=== PATIENT | male | born 1955 | race Caucasian/White ===

== ENCOUNTER 2017-04-15 10:19 | Day surgery (SDC) | payer OTHER ==
[2017-04-15 11:55] VITALS: TEMP 98.1
[2017-04-15] MEDS ORDERED: LACTATED RINGERS 1,000 ML IV ONE (11:55)
[2017-04-15] MEDS ORDERED: PROPOFOL 10 MG/ML 20 ML VIAL IV ONE (12:41)
[2017-04-15] MEDS ORDERED: LIDOCAINE 1% INJ 10MG/ML (20 ML MDV) ONE (12:41)
--- NOTE | 2017-04-15 12:52 | P.GSHP ---
History of Present Illness H&P Date: 04/15/17 Chief Complaint: Screening colonoscopy This is a 61-year-old male referred from Dr. Garcia. Patient rents today for screening colonoscopy. His last colonoscopy was approximately 9 years ago. Past Medical History Past Medical History: No Reported History History of Any Multi-Drug Resistant Organisms: None Reported Additional Past Surgical History / Comment(s): RIGHT ANKLE SURGERY, RIGHT THUMB SURGERY Past Anesthesia/Blood Transfusion Reactions: No Reported Reaction Past Psychological History: No Psychological Hx Reported Smoking Status: Former smoker Past Alcohol Use History: None Reported Past Drug Use History: None Reported - Past Family History Daughter(s) History Unknown: Yes Family Medical History: Cancer Additional Family Medical History / Comment(s): DAUGHTER HAS HX OF LEUKEMIA Medications and Allergies Home Medications Medication Instructions Recorded Confirmed Type Multivitamin [Men's Multi-Vitamin] 1 tab PO DAILY 04/15/17 04/15/17 History Allergies Allergy/AdvReac Type Severity Reaction Status Date / Time Penicillins Allergy Swelling Verified 04/15/17 11:53 Surgical - Exam Vital Signs Temp Pulse Resp BP Pulse Ox 98.1 F 72 16 127/80 98 04/15/17 11:54 04/15/17 11:54 04/15/17 11:54 04/15/17 11:54 04/15/17 11:54 - General well developed, no distress - Eyes PERRL - ENT normal pinna - Neck no masses - Respiratory normal expansion - Cardiovascular Rhythm: regular - Abdomen Abdomen: soft, non tender Assessment and Plan Plan: We will perform screening colonoscopy.
--- NOTE | 2017-04-15 13:01 | P.OP ---
Date of Procedure: 04/15/17 Preoperative Diagnosis: Screening colonoscopy Postoperative Diagnosis: Mild sigmoid inflammation, pathology pending Procedure(s) Performed: Colonoscopy Implants: Anesthesia: MAC Surgeon: Silver Amaral Pathology: other (Sigmoid biopsy) Condition: stable Disposition: PACU Indications for Procedure: Operative Findings: Description of Procedure: The patient's placed on the endoscopy table in the lateral position. He received IV sedation. Digital rectal exam was performed which revealed no abnormalities. The prostate was symmetric without nodules. The flexible colonoscope was then placed patient anus passed throughout the entire colon. The ileocecal valve was visualized. Cecum, ascending, transverse and descending colon appeared normal. The scope was then brought back the sigmoid colon and a biopsies performed. There is evidence of some mildly inflamed mucosa. The rectum appeared normal. Scope was withdrawn for patient.
[2017-04-15 13:25] VITALS: BP 124/85; PULSE 76; RESP 18
== END 2017-04-15 13:36 | disposition home or self-care (01) ==
LOC: ORWHC2ENDO 10:19
PROVIDERS: ATTEND Surgery
DX: Z12.11 Encounter for screening for malignant neoplasm of colon (principal); Z86.010 Personal history of colon polyps; Z87.891 Personal history of nicotine dependence; Z88.0 Allergy status to penicillin
CPT/HCPCS: 88305; 45380; J2001; J2704

== ENCOUNTER → 2018-12-06 | Outpatient (CLI) | payer BC ==
--- NOTE | 2018-12-06 12:35 | MR ---
EXAMINATION TYPE: MR knee RT wo con DATE OF EXAM: 12/06/2018 COMPARISON: Outside right knee x-ray December 02, 2018. HISTORY: Right knee pain per order. Pain and swelling with repetitive trauma for years per patient. TECHNIQUE: Multiplanar, multisequence images of the knee is performed without IV contrast. FINDINGS: MEDIAL MENISCUS: Medial meniscus is abnormal, there is oblique signal anterior horn extending to supe rior and inferior articular surfaces. Posterior horn is truncated with central increased signal exten ding to superior articular surface. LATERAL MENISCUS: Anterior and posterior horns are intact without tear. CRUCIATE LIGAMENTS: The anterior and posterior cruciate ligaments are intact and unremarkable. COLLATERAL LIGAMENTS: The medial collateral ligament and lateral collateral ligament complex are inta ct. Mild fluid signal surrounds medial collateral ligament. EXTENSOR MECHANISM: Visualized quadriceps and patellar tendons are intact. EFFUSION: No significant suprapatellar joint effusion. POPLITEAL CYST: No popliteal/he cyst. There is focal fluid signal seen deeper in central to the p opliteal fossa near popliteal vessels best sagittal image 16 of uncertain etiology. TRICOMPARTMENT SPACES: Mild to moderate tricompartment joint space loss is present. There is mild tib ial condylar spurring and mild medial tibiofemoral compartment spurring. CARTILAGE: Thinning of articular cartilage with fissuring medial tibiofemoral compartment is present. No significant chondromalacia patella is identified. BONE MARROW SIGNAL: Suspect unfused apophysis lateral aspect of the patella with well-defined cleft. No suspicious edema is noted. OTHER: No additional significant abnormality is appreciated. IMPRESSION: 1. Full-thickness tears medial meniscus involving anterior and posterior horns. 2. Mild MCL sprain injury. 3. Mild to moderate tricompartment degenerative changes as detailed above.
== END | disposition home or self-care (01) ==
LOC: RADMRIMAIN 09:43
PROVIDERS: ATTEND Orthopaedic Surgery
DX: M17.11 Unilateral primary osteoarthritis, right knee (principal); S83.241A Other tear of medial meniscus, current injury, right knee, initial encounter; S83.91XA Sprain of unspecified site of right knee, initial encounter

== ENCOUNTER 2019-01-14 09:41 | Day surgery (SDC) | payer BC ==
[2019-01-08 15:23] VITALS: BMI 27.4
--- NOTE | 2019-01-13 13:35 | HP ---
HISTORY AND PHYSICAL Surgery is 01/14/2019. Jp Brown is a 63-year-old patient seen with progressive right knee pain. Treatment options were discussed. He elected to proceed with arthroscopy. Consent was obtained. PAST MEDICAL HISTORY: His past medical history is noncontributory. PAST SURGICAL HISTORY: Ankle surgery. DAILY MEDICATIONS: None. ALLERGIES: PENICILLIN. SOCIAL HISTORY: Denies current tobacco use. PHYSICAL EXAMINATION: Physical evaluation of the right knee: Range of motion is 0 to 120 degrees. There is a mild effusion present. Tenderness medial joint line. Positive medial Danette's. Ligaments are stable. Hip rotation without pain. Distal neurovascular exam is intact. Right knee radiographs revealed mild osteoarthritis, evidence for bipartite patella. MRI right knee revealed medial meniscal tear. IMPRESSION: Internal derangement right knee with medial meniscal tear. PLAN: Right knee arthroscopy with partial meniscectomy and debridement. MMODL / IJN: [id number] /
[~2019-01-14 09:41] MED LIST: CLINDAMYCIN 900 MG in DEXTROSE 5% IN WATER 50 ML IVPB ONE; DEXAMETHASONE SOD PHOSPHATE 10 MG/ML 1 ML VIAL IV ONE; LACTATED RINGERS 1,000 ML IV SCH; LIDOCAINE 1% 20 ML VIAL (10MG/ML) FOR IV START INTRADERMA PRN; ONDANSETRON 4 MG/2 ML VIAL IVP ONE; SCOPOLAMINE 1.5MG/72HR PATCH TRANSDERM ONE
[2019-01-14] MEDS ORDERED: LACTATED RINGERS 1,000 ML IV ONE ×2 (10:05→14:02)
[2019-01-14] MEDS ORDERED: KETOROLAC 30 MG/ML 1 ML VIAL ONE (12:10)
[2019-01-14] MEDS ORDERED: fentaNYL (PF) 50 MCG/ML 2 ML AMP ONE (12:10)
[2019-01-14] MEDS ORDERED: LIDOCAINE 1% INJ 10MG/ML (20 ML MDV) ONE (12:10)
[2019-01-14] MEDS ORDERED: DEXAMETHASONE SOD PHOS (MDV) 100 MG/10 ML VIAL ONE (12:10)
[2019-01-14] MEDS ORDERED: HYDROmorphone (PF) 1 MG/ML ONE (12:10)
[2019-01-14] MEDS ORDERED: MIDAZOLAM 2 MG/2 ML VIAL ONE (12:10)
[2019-01-14] MEDS ORDERED: BUPIVACAINE-EPI 0.5%-1:200,000 10 ML VIAL INTRAARTIC ONE (12:10)
[2019-01-14] MEDS ORDERED: PROPOFOL 10 MG/ML 20 ML VIAL IV ONE (12:10)
[2019-01-14] MEDS ORDERED: SUCCINYLCHOLINE CHLORIDE 100 MG/5 ML SYR IV ONE (12:10)
[2019-01-14 13:22] VITALS: TEMP 97.6
--- NOTE | 2019-01-14 13:23 | P.OP ---
Date of Procedure: 01/14/19 Preoperative Diagnosis: Internal derangement right knee Postoperative Diagnosis: 1. Tear medial meniscus right knee 2. Grade 4 chondromalacia medial femoral condyle right knee 3. 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 Reactive synovitis medial, lateral and suprapatellar compartments right knee Procedure(s) Performed: 1. Arthroscopic partial medial meniscectomy right knee 2. Arthroscopic chondroplasty medial femoral condyle right knee 3. Arthroscopic chondroplasty patellofemoral joint right knee 4. Arthroscopic microfracture medial femoral condyle right knee 5. Arthroscopic partial synovectomy medial, lateral and suprapatellar compartments right knee Anesthesia: DIANEA, local Surgeon: Jamel Vincent Estimated Blood Loss (ml): 8 Pathology: none sent Condition: stable Disposition: PACU Indications for Procedure: 63-year-old patient seen with progressive right knee pain. After treatment options were discussed, he elected to proceed with arthroscopy Operative Findings: See description of procedure Description of Procedure: Patient was taken to the operative suite. Patient underwent a general anesthetic by the department of anesthesia. Patient was given preoperative antibiotics. The right lower extremity was placed in a well-padded arthroscopic leg william. The right leg was prepped and draped in the normal sterile orthopedic fashion. A lateral parapatellar and suprapatellar incision was made. Trochars were inserted. Arthroscopy was initiated. Suprapatellar pouch revealed diffuse thick reactive synovitis. The patellofemoral joint appeared articulate congruently. There was grade 3/4 chondromalacia of the patellofemoral joint. The scope was guided into the medial gutter. No loose bodies or plica were identified. The scope was then guided into the medial compartment. A medial parapatellar incision was made. Trocar inserted followed by probe. There was a complex tear involving the posterior horn and midbody medial meniscus. There were grade 3 and 4 chondromalacia changes of the medial femoral condyle with some osteochondral flap tears present. There was thick reactive synovitis anteriorly. I performed a partial medial meniscectomy down to stable tissue. I performed a chondroplasty of the medial femoral condyle down to stable tissue. I performed a partial synovectomy decompressing the reactive synovitis. There was an area of exposed bone weightbearing surface medial femoral condyle. I performed a microfracture to that area penetrating the bone was resultant bleeding at the microfracture site. Scope and probe were then guided into the intercondylar notch. Cruciates were identified, probed and found to be stable. The scope and probe were then guided into lateral compartment. There was some superficial fraying of the lateral meniscus. There were grade 2 chondromalacia changes of lateral femoral condyle. There was thick reactive synovitis anteriorly. I debrided that superficial fraying of the lateral meniscus with a motorized shaver. I performed a partial synovectomy decompressing the thick reactive synovitis. There was good decompression of synovitis. The scope was in guided back into the suprapatellar compartment. I introduced a motorized shaver into the super patellar compartment. I debrided piecemeal fragments of meniscus I encountered. I performed a chondroplasty of the patellofemoral joint getting down to stable osteochondral tissue. I performed a partial synovectomy decompressing the reactive synovitis. There was good decompression of synovitis. I took one more look on the entire knee, no residual debris. Instruments were now removed from the joint. The joint was infiltrated with .5% Marcaine. Steri-Strips were applied to the portal sites. Sterile dressings were applied. The patient was placed into a LITO hose. No tourniquet was utilized. The patient was awakened, transferred to a bed and taken to recovery stable satisfactory condition.
[2019-01-14] MEDS: HYDROmorphone 0.5 MG/0.5 ML SYRINGE IVP PRN ×2 (13:25→13:30)
[2019-01-14 14:08] VITALS: RESP 16
[2019-01-14 15:37] VITALS: BP 133/85; PULSE 75
== END 2019-01-14 15:39 | disposition home or self-care (01) ==
LOC: OR 09:41
PROVIDERS: ATTEND Orthopaedic Surgery
DX: S83.241A Other tear of medial meniscus, current injury, right knee, initial encounter (principal); S83.281A Other tear of lateral meniscus, current injury, right knee, initial encounter; X58.XXXA Exposure to other specified factors, initial encounter; M22.41 Chondromalacia patellae, right knee; M65.861 Other synovitis and tenosynovitis, right lower leg; Z87.891 Personal history of nicotine dependence; I34.0 Nonrheumatic mitral (valve) insufficiency; Z88.0 Allergy status to penicillin
CPT/HCPCS: 29880; 84132; J2250; J1100 ×2; J2405; J2001; J3010; J1885; J1170 ×2; J0330; J2704

== ENCOUNTER → 2021-01-31 | Outpatient (CLI) | payer MEDICARE ==
--- NOTE | 2021-01-31 09:53 | MR ---
EXAMINATION TYPE: MR knee LT wo con DATE OF EXAM: 01/31/2021 COMPARISON: X-ray 01/18/2021 HISTORY: Left Knee pain, towards medial side of Knee TECHNIQUE: Multiplanar, multisequence imaging of the left knee is performed without IV contrast. FINDINGS: MEDIAL MENISCUS: Within the posterior horn there is grade 3 abnormal signal compatible with a menisca l tear. There is also localized grade III chondromalacia of the femoral cartilage. Small para menisca l cyst noted. LATERAL MENISCUS: Linear intrasubstance signal seen within the posterior horn and body of the lateral meniscus. . Localized grade II chondromalacia of the lateral femoral cartilage CRUCIATE LIGAMENTS: The anterior and posterior cruciate ligaments are intact and unremarkable. COLLATERAL LIGAMENTS: The medial collateral ligament and lateral collateral ligament complex are. Fin dings suggestive of a grade 1 MCL strain. EXTENSOR MECHANISM: Visualized quadriceps and patellar tendons are intact. EFFUSION: No significant suprapatellar joint effusion. POPLITEAL CYST: 1 cm popliteal fossa cyst TRICOMPARTMENT SPACES: There is narrowing of the medial compartment of the knee joint. No erosive josé nges. BONE MARROW SIGNAL: No focal abnormal marrow signal is appreciated. IMPRESSION: 1. Findings compatible with a complex posterior horn medial meniscal tear. Small adjacent paralabral cyst noted. Grade 1 MCL strain 2. Intrasubstance signal lateral meniscus most typical of myxoid degeneration. 3. Chondromalacia involving the articular medial and lateral femoral cartilage. 4. Findings suspicious for linear tear posterior horn and body lateral meniscus.
== END | disposition home or self-care (01) ==
LOC: RADMRIMAIN 08:30
PROVIDERS: ATTEND Orthopaedic Surgery
DX: M94.262 Chondromalacia, left knee (principal)

== ENCOUNTER 2021-03-16 12:01 | Day surgery (SDC) | payer MEDICARE ==
[2021-03-14 16:31] VITALS: BMI 25.9
--- NOTE | 2021-03-15 21:59 | HP ---
HISTORY AND PHYSICAL REASON FOR ADMISSION: Surgery 03/16/2021. HISTORY OF PRESENT ILLNESS: Jp Brown is a 65-year-old patient seen with progressive left knee pain. We discussed options for treatment. He elected to proceed with left knee arthroscopy. Consent was obtained. PAST MEDICAL HISTORY: Noncontributory. SURGICAL HISTORY: Ankle surgery. MEDICATIONS: Daily medications are none. ALLERGIES: PENICILLIN. SOCIAL HISTORY: Denies tobacco use. PHYSICAL EXAMINATION: Evaluation of the left knee: Range of motion zero to 130. There is a mild effusion. Tenderness medial joint line. Positive medial Danette's. Ligaments stable. Hip rotation without pain. Distal neurovascular exam is intact. RADIOGRAPHS: Left knee radiographs revealed moderate osteoarthritis, left knee MRI revealed a complex medial meniscal tear as well as a probable lateral meniscal tear. IMPRESSION: 1. Internal derangement of left knee with medial meniscal tear. 2. Left knee osteoarthritis. PLAN: Left knee arthroscopy with partial meniscectomy and debridement. MMODL / IJN: [id number] /
[~2021-03-16 12:01] MED LIST changes: -CLINDAMYCIN 900 MG in DEXTROSE 5% IN WATER 50 ML IVPB ONE; -DEXAMETHASONE SOD PHOSPHATE 10 MG/ML 1 ML VIAL IV ONE; -LIDOCAINE 1% 20 ML VIAL (10MG/ML) FOR IV START INTRADERMA PRN; -ONDANSETRON 4 MG/2 ML VIAL IVP ONE; -SCOPOLAMINE 1.5MG/72HR PATCH TRANSDERM ONE
[2021-03-16] MEDS ORDERED: ONDANSETRON 4 MG/2 ML VIAL ONE (12:27)
[2021-03-16] MEDS ORDERED: LACTATED RINGERS 1,000 ML IV ONE (12:37)
[2021-03-16] MEDS ORDERED: LIDOCAINE 1% (10MG/ML) FOR IV START INTRADERMA ONE (12:38)
[2021-03-16] MEDS ORDERED: DEXAMETHASONE SOD PHOSPHATE 4 MG/ML 1 ML VIAL IV ONE (12:39)
[2021-03-16] MEDS ORDERED: ONDANSETRON 4 MG/2 ML VIAL IVP ONE (12:40)
[2021-03-16] MEDS ORDERED: KETOROLAC 15 MG/ML 1 ML VIAL ONE (12:44)
[2021-03-16] MEDS ORDERED: fentaNYL (PF) 50 MCG/ML 2 ML AMP ONE (12:44)
[2021-03-16] MEDS ORDERED: MIDAZOLAM 2 MG/2 ML VIAL ONE (12:44)
[2021-03-16] MEDS ORDERED: LIDOCAINE 1% INJ 10MG/ML (20 ML MDV) ONE (12:44)
[2021-03-16] MEDS ORDERED: PROPOFOL 10 MG/ML 20 ML VIAL IV ONE (12:44)
[2021-03-16] MEDS ORDERED: BUPIVACAINE (PF) 0.25% 30 ML VIAL SQ ONE ×2 (12:55→13:22)
[2021-03-16] MEDS: CLINDAMYCIN 900 MG in DEXTROSE 5% IN WATER 50 ML IVPB PRN ×4 (12:55→13:01)
[2021-03-16 13:34] VITALS: TEMP 97
--- NOTE | 2021-03-16 13:39 | P.OP ---
Date of Procedure: 03/16/21 Preoperative Diagnosis: Internal derangement left knee Postoperative Diagnosis: 1. Tear medial meniscus left knee 2. Grade 2 chondromalacia medial femoral condyle left knee 3. Reactive synovitis medial, lateral and suprapatellar compartments left knee Procedure(s) Performed: 1. Arthroscopic partial medial meniscectomy left knee 2. Arthroscopic chondroplasty medial femoral condyle left knee 3. Arthroscopic partial synovectomy medial, lateral and suprapatellar compartments left knee Anesthesia: DIANEA, local Surgeon: Jamel Vincent Estimated Blood Loss (ml): 7 Pathology: none sent Condition: stable Disposition: PACU Indications for Procedure: 65-year-old patient seen with progressive left knee pain. After treatment options were discussed, he elected to proceed with arthroscopy. Operative Findings: See description of procedure Description of Procedure: Patient was taken to the operative suite. Patient underwent a general anesthetic by the department of anesthesia. Patient was given preoperative antibiotics. The left lower extremity was placed in a well-padded arthroscopic leg william. The left leg was prepped and draped in the normal sterile orthopedic fashion. A lateral parapatellar and suprapatellar incision was made. Trochars were inserted. Arthroscopy was initiated. Suprapatellar pouch revealed diffuse thick reactive synovitis. The patellofemoral joint appeared to articulate congruently. There was grade 1 chondromalacia of the patellofemoral joint with no osteochondral tears present. The scope was guided into the medial gutter. No loose bodies or plica were identified. The scope was then guided into the medial compartment. A medial parapatellar incision was made. Trocar inserted followed by probe. It was a complex tear medial meniscus involving the posterior horn and midbody. There were grade 2 chondral moist changes of the medial femoral condyle. There was thick reactive synovitis anteriorly. I performed a partial medial meniscectomy getting down to stable meniscal tissue. I performed a chondroplasty of the medial femoral condyle getting down to stable osteochondral tissue. I performed a partial synovectomy decompressing the thick reactive synovitis. The shaver was removed. The residual meniscus was stable. There was good decompression of the synovitis. The residual osteochondral surface was stable. Scope and probe were then guided into the intercondylar notch. Cruciates were identified, probed and found to be stable. The scope and probe were then guided into lateral compartment. Lateral meniscus was probed and found to be stable. There was no significant chondromalacia present. There was some thick reactive synovitis anteriorly. I introduced a motorized shaver and performed a partial synovectomy decompressing the reactive synovitis. The shaver was removed. There was good decompression of the synovitis. The scope was in guided back into the suprapatellar compartment. I introduced a motorized shaver into the suprapatellar compartment. I debrided some piecemeal fragments of meniscus I encountered. I performed a partial synovectomy decompressing the reactive synovitis. The shaver was removed. There was good decompression of the synovitis. Instruments were now removed from the joint. The joint was infiltrated with .25% Marcaine. Steri-Strips were applied to the portal sites. Sterile dressings were applied. The patient was placed into a LITO hose. No tourniquet was utilized. The patient was awakened, transferred to a bed and taken to recovery stable satisfactory condition.
[2021-03-16] MEDS ORDERED: HYDROmorphone 0.5 MG/0.5 ML SYRINGE IVP ONE (13:57)
[2021-03-16 14:18] VITALS: BP 138/88; PULSE 59; RESP 20
== END 2021-03-16 14:50 | disposition home or self-care (01) ==
LOC: OR 12:01
PROVIDERS: ATTEND Orthopaedic Surgery
DX: M23.204 Derangement of unspecified medial meniscus due to old tear or injury, left knee (principal); M94.262 Chondromalacia, left knee; M17.12 Unilateral primary osteoarthritis, left knee; M65.862 Other synovitis and tenosynovitis, left lower leg; Z98.890 Other specified postprocedural states; Z88.0 Allergy status to penicillin
CPT/HCPCS: 29881; 29876; J2250; J1100; J2405; J2001; J3010; J1885; J2704; J1170

== ENCOUNTER 2022-05-06 21:14 | Emergency (ER) | payer MEDICARE ==
[2022-05-06] MEDS ORDERED: FLUORESCEIN STRIPS 1 MG STRIP RIGHT EYE ONE (21:31)
[2022-05-06] MEDS ORDERED: PROPARACAINE 0.5% OPHTH DROPS 15 ML BTL RIGHT EYE STA (21:32)
[2022-05-06] MEDS ORDERED: GENTAMICIN 0.3% OPHTH DROPS 5 ML BTL LEFT EYE STA (21:53)
--- NOTE | 2022-05-06 21:54 | ED ---
General Adult HPI - General Chief complaint: Eye Problems Stated complaint: Pool shock in eye Time Seen by Provider: 05/06/22 21:30 Source: patient, RN notes reviewed Mode of arrival: ambulatory Limitations: no limitations - History of Present Illness Initial comments: Patient is a pleasant 66-year-old male presenting to the emergency department after getting cool water in his left eye. Patient did put shock in the pool just a couple hours ago. Patient did have renal his left eye and some blurred vision. Patient states this is around 85% resolved at this time. Patient did flush his eye out 3 times each lasting close to 15 minutes. Patient states only left eye is affected, no involvement of the right eye. Patient does wear corrective lenses normally and does have these with him. - Related Data Home Medications Medication Instructions Recorded Confirmed Glucosam/Daren-Msm1/C/Markie/Bosw 1 each PO DAILY 01/08/19 03/16/21 [Glucosamine-Chondroitin Tablet] flaxseed oiL [Flaxseed Oil] 1,000 mg PO DAILY 01/08/19 03/16/21 Previous Rx's Medication Instructions Recorded HYDROcodone/APAP 5-325MG [[place] 1 tab PO Q6HR PRN #21 tab 03/16/21 5-325] Allergies Allergy/AdvReac Type Severity Reaction Status Date / Time Penicillins Allergy Severe Swelling Verified 05/06/22 21:26 Review of Systems ROS Statement: Those systems with pertinent positive or pertinent negative responses have been documented in the HPI. ROS Other: All systems not noted in ROS Statement are negative. Constitutional: Denies: fever Eyes: Reports: as per HPI ENT: Denies: ear pain Respiratory: Denies: cough Gastrointestinal: Denies: abdominal pain Genitourinary: Denies: dysuria Past Medical History Past Medical History: No Reported History Additional Past Medical History / Comment(s): "slight leaky heart valve" History of Any Multi-Drug Resistant Organisms: None Reported Past Surgical History: Orthopedic Surgery, Tonsillectomy Additional Past Surgical History / Comment(s): rt ankle ORIF, fx RIGHT THUMB, RIGHT KNEE ARTHROSCOPIC SURGERY Past Anesthesia/Blood Transfusion Reactions: No Reported Reaction Past Psychological History: No Psychological Hx Reported Smoking Status: Former smoker Past Alcohol Use History: None Reported Past Drug Use History: None Reported - Past Family History Daughter(s) History Unknown: Yes Family Medical History: Cancer Additional Family Medical History / Comment(s): DAUGHTER HAS HX OF LEUKEMIA Brother(s) Family Medical History: Deep Vein Thrombosis (DVT) General Exam Limitations: no limitations General appearance: alert, in no apparent distress Head exam: Present: normocephalic Eye exam: Present: PERRL, EOMI, conjunctival injection (Left-sided), other (No uptake with fluorescein stain. PH 7.0 bilateral) Neck exam: Present: normal inspection Respiratory exam: Present: normal lung sounds bilaterally Cardiovascular Exam: Present: regular rate, normal rhythm Extremities exam: Present: normal inspection Skin exam: Present: normal color Disposition Clinical Impression: Chemical conjunctivitis of left eye Disposition: HOME SELF-CARE Condition: Stable Instructions (If sedation given, give patient instructions): [facility] (ED) Additional Instructions: Please follow-up with ophthalmology tomorrow, number provided. Return for change of vision, increased pain or color change, worsening symptoms or any other concerns. Use eye drops every 4 hours while awake. Is patient prescribed a controlled substance at d/c from ED?: No Referrals: Mikhail Garcia DO [Primary Care Provider] - 1-2 days Elver Churchill MD [STAFF PHYSICIAN] - 1-2 days Time of Disposition: 21:53
[2022-05-06 22:10] VITALS: BP 136/76; PULSE 79; RESP 20; TEMP 97.8
== END 2022-05-06 22:19 | disposition home or self-care (01) ==
LOC: EC 21:14
DX: H10.212 Acute toxic conjunctivitis, left eye (principal); Z87.891 Personal history of nicotine dependence; Z88.0 Allergy status to penicillin
CPT/HCPCS: 99283